=== PATIENT | male | born 1955 | race Caucasian/White ===

== ENCOUNTER 2023-08-30 15:14 | Outpatient (CLI) | payer MEDICARE, MEDICAID, SELFPAY ==
[2023-08-30 16:02] LABS: Basophils Absolute Auto 0.08 K/mm3 (0.00-0.10); Basophils Percent Auto 0.9 % (0.0-1.0); Eosinophils Absolute Auto 0.39 K/mm3 (0.02-0.50); Eosinophils Percent Auto 4.2 % (1.0-6.0); Hematocrit 46.2 % (37.0-46.0); Immature Granulocyte Absolute 0.03 K/mm3 (0.00-0.00); Immature Granulocyte Percent A 0.3 % (0.0-0.0); Lymphocytes Absolute Auto 2.67 K/mm3 (1.10-4.50); Lymphocytes Percent Auto 29.1 % (18.0-42.0); Mean Corpuscular HGB Conc 32.5 g/dL (32.0-36.0); Mean Corpuscular Hemoglobin 31.8 pg (27.0-31.0); Mean Corpuscular Volume 97.9 fL (78.0-102.0); Mean Platelet Volume 9.6 fl (8.7-11.0); Monocytes Absolute Auto 0.74 K/mm3 (0.10-0.90); Monocytes Percent Auto 8.1 % (2.0-11.0); Neutrophils Absolute Auto 5.3 K/mm3 (1.7-7.2); Neutrophils Percent Auto 57.4 % (50.0-70.0); Platelet Count Result 389 K/mm3 (150-420); Red Blood Count 4.72 M/mm3 (4.70-6.10); Red Cell Distribution Width 14.8 % (11.6-14.4); White Blood Count 9.2 K/mm3 (4.8-10.8)
[2023-08-30 16:36] LABS: Alanine Aminotransferase 25 U/L (16-63); Albumin Level 3.7 g/dL (3.4-5.0); Alkaline Phosphatase 105 U/L (46-116); Anion Gap 7 mmol/L (8-16); Aspartate Amino Transferase 21 U/L (15-37); Bilirubin,Total 0.5 mg/dL (0.00-1.00); Blood Urea Nitrogen 16 mg/dL (7-18); Calcium 9.5 mg/dL (8.5-10.1); Carbon Dioxide 31 mmol/L (21-32); Chloride 102 mmol/L (98-108); Estimated Glomerular Filt Rate > 60; Glucose 86 mg/dL (70-99); Osmolality Calculated 290 mOsm/kg (285-295); Sodium 140 mmol/L (136-145); Total Protein 6.5 g/dL (6.4-8.2)
== END 2023-08-30 15:15 | disposition home or self-care (01) ==
LOC: CHSLAB 15:29
PROVIDERS: Visit Provider Internal Medicine Hematology
DX: C34.92 Malignant neoplasm of unspecified part of left bronchus or lung (principal); R53.83 Other fatigue
CPT/HCPCS: 36415; 80053; 84443; 85025

== ENCOUNTER 2023-10-05 09:35 | Outpatient (CLI) | payer MEDICARE, MEDICAID, SELFPAY ==
[2023-10-05 10:04] VITALS: BP 109/63; PULSE 88; RESP 14; TEMP 36.5; O2SAT 96; BMI 24.5
[2023-10-05] MEDS: PEMBROLIZUMAB 200 MG in SODIUM CHLORIDE 0.9% IV 100 ML IVPB (10:28)
[2023-10-05 11:07] VITALS: BP 117/69; PULSE 92; RESP 14; TEMP 36.4; O2SAT 96
[2023-10-05] MEDS: HEPARIN SODIUM LOCK FLUSH 500 UNITS/5 ML SYRINGE (11:07)
--- NOTE | 2023-10-05 11:08 | PC.NURSE ---
Patient here for #1 Keytruda infusion. Education given. All concerns answered. Labs from [facility] reviewed and ok'd for chemo today. Infusion administered. SEE MAR. Tolerated well. Will return 10/26/23 at 0930 for #2 infusion. Will get labs in [place] on 10/25/23. Safe exit of hospital with brother/ambulatory.
== END 2023-10-05 09:36 | disposition home or self-care (01) ==
PROVIDERS: Visit Provider Internal Medicine Hematology
DX: Z51.11 Encounter for antineoplastic chemotherapy (principal); C34.12 Malignant neoplasm of upper lobe, left bronchus or lung
CPT/HCPCS: 96413; J9271

== ENCOUNTER 2023-10-26 09:23 | Outpatient (CLI) | payer MEDICARE, MEDICAID, SELFPAY ==
[2023-10-26 09:44] VITALS: BMI 24.9
[2023-10-26 09:46] VITALS: BP 134/73; PULSE 72; RESP 14; TEMP 36.6; O2SAT 98
[2023-10-26] MEDS: PEMBROLIZUMAB 200 MG in SODIUM CHLORIDE 0.9% IV 100 ML IVPB (10:00)
[2023-10-26] MEDS: HEPARIN SODIUM LOCK FLUSH 500 UNITS/5 ML SYRINGE IV PUSH (10:40)
[2023-10-26 11:14] VITALS: BP 127/80; PULSE 72; RESP 14; TEMP 36.5; O2SAT 97
--- NOTE | 2023-10-26 11:17 | PC.NURSE ---
Patient here for cycle 2 Keytruda. Education given. All concerns voiced answered. Labs reviewed from 11/04/23 and ok'd. Infusion administered. SEE MAR. Tolerated well. Safe exit of hospital with friend/ambulatory. Will return 11/17/23 at 0930 for cycle 3.
== END 2023-10-26 09:24 | disposition home or self-care (01) ==
PROVIDERS: Visit Provider Internal Medicine Hematology
DX: Z51.11 Encounter for antineoplastic chemotherapy (principal); C34.12 Malignant neoplasm of upper lobe, left bronchus or lung
CPT/HCPCS: 96413; J9271

== ENCOUNTER 2023-11-16 09:07 | Outpatient (CLI) | payer MEDICARE, MEDICAID, SELFPAY ==
--- NOTE | ~2023-11-16 | XR_ITS ---
Clinical Indication: Cough PA and lateral views of the chest: Comparison: None Findings: Right-sided central venous line in place. There is patchy haziness throughout the left lung , and minimally the right midlung. Calcified right basilar granuloma present. 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 Cardiomediastinal silhouette is within normal limits. T11 compression fracture present. Impression: Mild patchy haziness in the left lung and right midlung. Pneumonia suspected. Probable underlying COPD. Mediport in place. T11 compression fracture. Reviewed, dictated and finalized at location M. MAIL TECHNICIAN Impression: Mild patchy haziness in the left lung and right midlung. Pneumonia suspected. Probable underlying COPD. Mediport in place. T11 compression fracture.
[2023-11-16 09:47] VITALS: BP 110/62; PULSE 102; RESP 18; TEMP 36.6; O2SAT 84; BMI 24.9
[2023-11-16 10:06] VITALS: O2SAT 92
--- NOTE | 2023-11-16 10:06 | PC.NURSE ---
Patient here for cycle 3 of Keytruda today. However, reports feeling under the weather. Coughing up green yellow phlegm . Denies fever. Current afebrile. Denies no shortness then breath then usual. Lungs with diminished with some scattered wheezes. O2 sat 84-88% at first. Took his albuterol inhaler- cough up secretions and sats staying in low 90's. Labs reviewed from 11/14/23 (done in [place]) WBC 11, but otherwise unremarkable. Notified Dr. Chen of above. Hold treatment this week. Chest xray and covid test ordered. Patient went to xray and then going to lab. Patient told that Dr. Chen office will call him at home if they need to do or start anything else.
[2023-11-16 10:59] LABS: SARS-CoV-2 RNA PCR Negative (Negative)
[2023-11-16 11:02] LABS: Influenza A QL RT-PCR Negative (Negative); Influenza B QL RT-PCR Negative (Negative); RSV RNA, RT-PCR Negative (Negative)
== END 2023-11-16 09:08 | disposition home or self-care (01) ==
LOC: CHSTREATRM 09:12
PROVIDERS: Visit Provider Internal Medicine Hematology
DX: C34.12 Malignant neoplasm of upper lobe, left bronchus or lung (principal); R05.9 Cough, unspecified; R91.8 Other nonspecific abnormal finding of lung field; Z20.822 Contact with and (suspected) exposure to COVID-19
CPT/HCPCS: 71046; 87637

== ENCOUNTER 2023-11-30 09:07 | Outpatient (CLI) | payer MEDICARE, MEDICAID, SELFPAY ==
[2023-11-30 09:31] VITALS: BP 119/67; PULSE 92; RESP 16; TEMP 36.5; O2SAT 93; BMI 24.3
[2023-11-30] MEDS: PEMBROLIZUMAB 200 MG in SODIUM CHLORIDE 0.9% IV 100 ML IVPB (09:40)
[2023-11-30 10:20] VITALS: BP 114/69; PULSE 88; RESP 14; TEMP 36.4; O2SAT 94
[2023-11-30] MEDS: HEPARIN SODIUM LOCK FLUSH 500 UNITS/5 ML SYRINGE IV PUSH (10:29)
--- NOTE | 2023-11-30 10:34 | PC.NURSE ---
Patient here for #3 cycle of Keytruda tx. Ongoing teaching given. No concerns voiced. Infusion administered. SEE MAR. Tolerated well. Safe exit of hospital with friend/ambulatory. Will return 12/21/23 at 0930 for #4 tx.
--- NOTE | 2023-11-30 10:37 | PC.NURSE ---
Labs done at [facility] on . reviewed and ok'd prior to infusion.
== END 2023-11-30 10:37 | disposition home or self-care (01) ==
LOC: CHSTREATRM 09:11
PROVIDERS: PCP Internal Medicine Hematology; Visit Provider Internal Medicine Hematology
DX: Z51.11 Encounter for antineoplastic chemotherapy (principal); C34.12 Malignant neoplasm of upper lobe, left bronchus or lung
CPT/HCPCS: 96413; J9271

== ENCOUNTER 2023-12-21 08:59 | Outpatient (CLI) | payer MEDICARE, MEDICAID, SELFPAY ==
[2023-12-21 09:17] VITALS: BP 117/69; PULSE 98; RESP 16; TEMP 36.6; O2SAT 92; BMI 22.6
[2023-12-21] MEDS: PEMBROLIZUMAB 200 MG in SODIUM CHLORIDE 0.9% IV 100 ML IVPB (09:35)
[2023-12-21 10:01] VITALS: BP 121/70; PULSE 92; RESP 14; O2SAT 94
[2023-12-21] MEDS: HEPARIN SODIUM LOCK FLUSH 500 UNITS/5 ML SYRINGE IV PUSH (10:04)
--- NOTE | 2023-12-21 10:12 | PC.NURSE ---
Patient here for Keytruda chemo infusion. Labs reviewed from 12/20/23 and ok'd. Education given. No concerns voiced. Keytruda infusion administered. SEE MAR. Tolerated well. Will return 01/11/24 0900 for #5. Safe exit of hospital with brother/ambulatory.
== END 2023-12-21 09:00 | disposition home or self-care (01) ==
PROVIDERS: Visit Provider Internal Medicine Hematology
DX: Z51.11 Encounter for antineoplastic chemotherapy (principal); C34.12 Malignant neoplasm of upper lobe, left bronchus or lung
CPT/HCPCS: 96413; J9271

== ENCOUNTER 2024-01-11 09:02 | Outpatient (CLI) | payer MEDICARE, MEDICAID, SELFPAY ==
[2024-01-11 09:24] VITALS: BP 119/73; PULSE 72; RESP 16; TEMP 36.1; O2SAT 92; BMI 23.9
[2024-01-11] MEDS: PEMBROLIZUMAB 200 MG in SODIUM CHLORIDE 0.9% IV 100 ML IVPB (09:30)
[2024-01-11] MEDS: HEPARIN SODIUM LOCK FLUSH 500 UNITS/5 ML SYRINGE IV PUSH (10:04)
[2024-01-11 10:11] VITALS: BP 120/77; PULSE 80; RESP 14; O2SAT 93
--- NOTE | 2024-01-11 10:12 | PC.NURSE ---
Patient here for Keytruda infusion. No concerns voiced. Education given. IV infusion administered. SEE MAR. Tolerated well. Will return 01/31/34 at 9 a.m. for next treatment. Safe exit of hospital per with brother/ambulatory.
== END 2024-01-11 09:03 | disposition home or self-care (01) ==
PROVIDERS: Visit Provider Internal Medicine Hematology
DX: Z51.11 Encounter for antineoplastic chemotherapy (principal); C34.12 Malignant neoplasm of upper lobe, left bronchus or lung
CPT/HCPCS: 96413; J9271

== ENCOUNTER 2024-02-01 09:01 | Outpatient (CLI) | payer MEDICARE, MEDICAID, SELFPAY ==
[2024-02-01 09:17] VITALS: BP 103/65; PULSE 76; RESP 16; TEMP 36.7; O2SAT 96; BMI 23.3
[2024-02-01] MEDS: PEMBROLIZUMAB 200 MG in SODIUM CHLORIDE 0.9% IV 100 ML IVPB (09:30)
[2024-02-01] MEDS: HEPARIN SODIUM LOCK FLUSH 500 UNITS/5 ML SYRINGE IV PUSH (10:00)
[2024-02-01 10:33] VITALS: BP 110/69; PULSE 88; RESP 14; O2SAT 96
--- NOTE | 2024-02-01 10:37 | PC.NURSE ---
Patient here for Keytruda tx infusion. Education given. No concerns voiced. Labs results from [facility] gotten/reviewed/ok'd. Tx infusion administered. SEE MAR. Tolerated well. Safe exit of hospital per self/ambulatory. Will return February 22, 2024 at 9 am.
== END 2024-02-01 09:02 | disposition home or self-care (01) ==
PROVIDERS: PCP Internal Medicine Hematology; Visit Provider Internal Medicine Hematology
DX: Z51.11 Encounter for antineoplastic chemotherapy (principal); C34.12 Malignant neoplasm of upper lobe, left bronchus or lung
CPT/HCPCS: 96413; J9271

== ENCOUNTER 2024-02-22 09:00 | Outpatient (CLI) | payer MEDICARE, MEDICAID, SELFPAY ==
[2024-02-22 09:15] VITALS: BP 113/70; PULSE 88; RESP 16; TEMP 36.6; O2SAT 95; BMI 23.6
[2024-02-22] MEDS: PEMBROLIZUMAB 200 MG in SODIUM CHLORIDE 0.9% IV 100 ML IVPB (09:35)
[2024-02-22] MEDS: HEPARIN SODIUM LOCK FLUSH 500 UNITS/5 ML SYRINGE IV PUSH (10:20)
[2024-02-22 10:21] VITALS: BP 125/68; PULSE 68; RESP 14; O2SAT 95
--- NOTE | 2024-02-22 10:24 | PC.NURSE ---
Patient here for Keytruda infusion. Labs done at [facility]- reviewed/ok'd Cortisol pending, but Dr. Chen approved to proceed. Education given. No concerns voiced. Keytruda administered. SEE MAR. Tolerated well. Will call patient to schedule next treatment after talking to Dr. Chen. Safe exit of hospital per self/ambulation.
== END 2024-02-22 09:01 | disposition home or self-care (01) ==
PROVIDERS: PCP Internal Medicine Hematology; Visit Provider Internal Medicine Hematology
DX: Z51.11 Encounter for antineoplastic chemotherapy (principal); C34.12 Malignant neoplasm of upper lobe, left bronchus or lung
CPT/HCPCS: 96413; J9271

== ENCOUNTER 2024-03-21 09:12 | Outpatient (CLI) | payer MEDICARE, MEDICAID, SELFPAY ==
[2024-03-21 09:20] VITALS: BMI 23.3
[2024-03-21] MEDS: PEMBROLIZUMAB 200 MG in SODIUM CHLORIDE 0.9% IV 100 ML IVPB (09:20)
[2024-03-21 09:33] VITALS: BP 118/71; PULSE 78; RESP 14; TEMP 36.6; O2SAT 96
[2024-03-21 10:26] VITALS: BP 121/70; PULSE 72; RESP 14; TEMP 36.4; O2SAT 96
[2024-03-21] MEDS: HEPARIN SODIUM LOCK FLUSH 500 UNITS/5 ML SYRINGE IV PUSH (10:27)
--- NOTE | 2024-03-21 10:56 | PC.NURSE ---
Patient tolerated IV Keytruda treatment well today. Refer to MAR/patient care notes.[facility]
== END 2024-03-21 09:13 | disposition home or self-care (01) ==
PROVIDERS: Visit Provider Internal Medicine Hematology
DX: Z51.11 Encounter for antineoplastic chemotherapy (principal); C34.12 Malignant neoplasm of upper lobe, left bronchus or lung
CPT/HCPCS: 96413; J9271

== ENCOUNTER 2024-04-11 08:59 | Outpatient (CLI) | payer MEDICARE, MEDICAID, SELFPAY ==
[2024-04-11] MEDS: PEMBROLIZUMAB 200 MG in SODIUM CHLORIDE 0.9% IV 100 ML IVPB (09:15)
[2024-04-11 09:20] VITALS: BP 121/70; PULSE 78; RESP 14; TEMP 36.6; O2SAT 96; BMI 23.3
[2024-04-11] MEDS: HEPARIN SODIUM LOCK FLUSH 500 UNITS/5 ML SYRINGE IV PUSH (09:55)
[2024-04-11 10:03] VITALS: BP 118/71; PULSE 72; RESP 14
--- NOTE | 2024-04-11 10:12 | PC.NURSE ---
Patient tolerated Keytruda infusion well. see MAR/patient care notes.
== END 2024-04-11 09:00 | disposition home or self-care (01) ==
PROVIDERS: Visit Provider Internal Medicine Hematology
DX: Z51.11 Encounter for antineoplastic chemotherapy (principal); C34.12 Malignant neoplasm of upper lobe, left bronchus or lung
CPT/HCPCS: 96413; J9271

== ENCOUNTER 2024-04-15 08:07 | Outpatient (CLI) | payer MEDICARE, MEDICAID, SELFPAY ==
--- NOTE | ~2024-04-15 | CT_ITS ---
Clinical Indication: Metastatic lung cancer CT Scan of the Chest, Abdomen, and Pelvis with Contrast: Technique: Contiguous sections were acquired throughout the chest, abdomen, and pelvis after intraven ous administration of 100 cc of Omnipaque 350. Dose reduction technique was used on this scan by maximiliano medeiros automated exposure control and iterative reconstruction technique. The dose-length product (DL P) was 419.65 mGy-cm. Findings: There is no evidence of any significant mediastinal, hilar or axillary lymphadenopathy. The mediastin al soft tissues appear normal. There is no evidence of pleural or pericardial effusion. There is advanced emphysema. There is scarring, possibly posttreatment change, the posterior right up per lobe. Additional scattered areas of pulmonary scarring are present. No overtly suspicious pulmona ry nodule seen currently. Calcified right basilar granuloma present. The liver, spleen, pancreas, gallbladder, adrenals and kidneys are within normal limits. There are at herosclerotic calcifications of the aorta. No lymphadenopathy. No bowel obstruction or bowel wall thickening. There is no evidence to suggest acute appendicitis. Urinary bladder is unremarkable. Urinary bladder unremarkable. No pelvic mass evident. No ascites. T11 compression fracture present, likely chronic. Impression: No definite evidence of active malignancy or metastatic disease. Scarring or possibly post treatment change the posterior right upper lobe. Underlying severe emphysem a. Reviewed, dictated and finalized at location . Impression: No definite evidence of active malignancy or metastatic disease. Scarring or possibly post treatment change the posterior right upper lobe. Unde rlying severe emphysema.
[2024-04-15 09:29] LABS: Estimated Glomerular Filt Rate > 60
== END 2024-04-15 08:08 | disposition home or self-care (01) ==
LOC: CHSIMG 08:10
PROVIDERS: Visit Provider Internal Medicine Hematology
DX: C34.90 Malignant neoplasm of unspecified part of unspecified bronchus or lung (principal); R91.8 Other nonspecific abnormal finding of lung field
CPT/HCPCS: 71260; 74177; Q9967

== ENCOUNTER 2024-05-02 09:01 | Outpatient (CLI) | payer MEDICARE, MEDICAID, SELFPAY ==
[2024-05-02 09:18] VITALS: BP 130/70; PULSE 88; RESP 14; TEMP 36.4; O2SAT 97; BMI 23.3
[2024-05-02] MEDS: PEMBROLIZUMAB 200 MG in SODIUM CHLORIDE 0.9% IV 100 ML IVPB (09:27)
[2024-05-02] MEDS: HEPARIN SODIUM LOCK FLUSH 500 UNITS/5 ML SYRINGE IV PUSH (10:04)
[2024-05-02 10:06] VITALS: BP 129/68; PULSE 68; RESP 14; O2SAT 97
--- NOTE | 2024-05-02 10:08 | PC.NURSE ---
Patient tolerated Keytruda infusion well. SEE MAR/patient notes.
== END 2024-05-02 09:02 | disposition home or self-care (01) ==
PROVIDERS: Visit Provider Internal Medicine Hematology
DX: Z51.11 Encounter for antineoplastic chemotherapy (principal); C34.12 Malignant neoplasm of upper lobe, left bronchus or lung
CPT/HCPCS: 96413; J9271

== ENCOUNTER 2024-05-23 08:42 | Outpatient (CLI) | payer MEDICARE, MEDICAID, SELFPAY ==
[2024-05-23 08:52] VITALS: BMI 23.3
[2024-05-23 09:00] VITALS: BP 135/73; PULSE 80; RESP 16; TEMP 36.3; O2SAT 97
[2024-05-23] MEDS: PEMBROLIZUMAB 200 MG in SODIUM CHLORIDE 0.9% IV 100 ML IVPB (09:21)
[2024-05-23 09:55] VITALS: BP 130/72; PULSE 78; RESP 14; O2SAT 98
[2024-05-23] MEDS: HEPARIN SODIUM LOCK FLUSH 500 UNITS/5 ML SYRINGE (09:55)
--- NOTE | 2024-05-23 10:12 | PC.NURSE ---
Patient here for #10 Keytruda infusions. Education given. Keytruda infusion administered. SEE MAR/patient care notes. Tolerated well.
== END 2024-05-23 08:43 | disposition home or self-care (01) ==
PROVIDERS: Visit Provider Internal Medicine Hematology
DX: Z51.11 Encounter for antineoplastic chemotherapy (principal); C34.12 Malignant neoplasm of upper lobe, left bronchus or lung
CPT/HCPCS: 96413; J9271

== ENCOUNTER 2024-06-13 08:59 | Outpatient (CLI) | payer MEDICARE, MEDICAID, SELFPAY ==
[2024-06-13 09:17] VITALS: BMI 23.3
[2024-06-13 09:20] VITALS: BP 128/76; PULSE 76; RESP 16; TEMP 36.4; O2SAT 99
[2024-06-13] MEDS: PEMBROLIZUMAB 200 MG in SODIUM CHLORIDE 0.9% IV 100 ML IVPB (09:30)
[2024-06-13] MEDS: HEPARIN SODIUM LOCK FLUSH 500 UNITS/5 ML SYRINGE IV PUSH (10:14)
[2024-06-13 10:25] VITALS: BP 129/77; PULSE 88; RESP 16; O2SAT 98
--- NOTE | 2024-06-13 10:38 | PC.NURSE ---
Patient tolerated Keytruda infusion well. SEE MAR/patient care notes.
== END 2024-06-13 10:40 | disposition home or self-care (01) ==
PROVIDERS: Visit Provider Internal Medicine Hematology
DX: Z51.11 Encounter for antineoplastic chemotherapy (principal); C34.12 Malignant neoplasm of upper lobe, left bronchus or lung
CPT/HCPCS: 96413; J9271

== ENCOUNTER 2024-07-04 08:56 | Outpatient (CLI) | payer MEDICARE, MEDICAID, SELFPAY ==
[2024-07-04 09:17] VITALS: BP 127/76; PULSE 92; RESP 16; TEMP 37.1; O2SAT 94
[2024-07-04 09:20] VITALS: BMI 23.0
[2024-07-04] MEDS: PEMBROLIZUMAB 200 MG in SODIUM CHLORIDE 0.9% IV 100 ML IVPB (09:32)
[2024-07-04] MEDS: HEPARIN SODIUM LOCK FLUSH 500 UNITS/5 ML SYRINGE IV PUSH (10:12)
[2024-07-04 10:14] VITALS: BP 117/68; PULSE 80; RESP 14; TEMP 36.4; O2SAT 94
--- NOTE | 2024-07-04 10:16 | PC.NURSE ---
Tolerated Keytruda infusion well. SEE MAR/patient care notes.
== END 2024-07-04 10:18 | disposition home or self-care (01) ==
PROVIDERS: PCP Internal Medicine Hematology; Visit Provider Internal Medicine Hematology
DX: Z51.11 Encounter for antineoplastic chemotherapy (principal); C34.12 Malignant neoplasm of upper lobe, left bronchus or lung
CPT/HCPCS: 96413; J9271

== ENCOUNTER 2024-07-25 08:50 | Outpatient (CLI) | payer MEDICARE, MEDICAID, SELFPAY ==
[2024-07-25 09:16] VITALS: BP 167/85; PULSE 88; RESP 20; TEMP 36.2; O2SAT 92; BMI 23.1
[2024-07-25] MEDS: PEMBROLIZUMAB 200 MG in SODIUM CHLORIDE 0.9% IV 100 ML IVPB (09:35)
[2024-07-25 10:30] VITALS: BP 157/82; PULSE 88; RESP 14; O2SAT 96
[2024-07-25] MEDS: HEPARIN SODIUM LOCK FLUSH 500 UNITS/5 ML SYRINGE (10:30)
--- NOTE | 2024-07-25 10:54 | PC.NURSE ---
1030 Patient tolerated treatment infusion well. see MAR/patient care notes.
== END 2024-07-25 08:51 | disposition home or self-care (01) ==
PROVIDERS: PCP Internal Medicine Hematology; Visit Provider Internal Medicine Hematology
DX: Z51.11 Encounter for antineoplastic chemotherapy (principal); C34.12 Malignant neoplasm of upper lobe, left bronchus or lung
CPT/HCPCS: 96413; J9271

== ENCOUNTER 2024-08-15 09:11 | Outpatient (CLI) | payer MEDICARE, MEDICAID, SELFPAY ==
[2024-08-15 09:30] VITALS: BP 123/74; PULSE 84; RESP 16; TEMP 36.4; O2SAT 96; BMI 23.0
[2024-08-15] MEDS: PEMBROLIZUMAB 200 MG in SODIUM CHLORIDE 0.9% IV 100 ML IVPB (09:42)
[2024-08-15] MEDS: HEPARIN SODIUM LOCK FLUSH 500 UNITS/5 ML SYRINGE IV PUSH (10:14)
[2024-08-15 10:23] VITALS: BP 131/70; PULSE 78; RESP 16; O2SAT 96
--- NOTE | 2024-08-15 10:24 | PC.NURSE ---
Patient tolerated #15 Keytruda infusion well. SEE MAR/patient care notes.
== END 2024-08-15 09:12 | disposition home or self-care (01) ==
PROVIDERS: Visit Provider Internal Medicine Hematology
DX: Z51.11 Encounter for antineoplastic chemotherapy (principal); C34.12 Malignant neoplasm of upper lobe, left bronchus or lung
CPT/HCPCS: 96413; J9271

== ENCOUNTER 2024-09-26 09:31 | Outpatient (CLI) | payer MEDICARE, MEDICAID, SELFPAY ==
[2024-09-26] MEDS: SODIUM CHLORIDE 0.9% IV 1,000 ML 1000 ML IVPB (10:00)
[2024-09-26 10:03] LABS: Hematocrit 41.8 % (37.0-46.0); Hemoglobin 13.5 g/dL (12.4-15.3); Immature Platelet Fraction Pct 1.2 % (1.0-7.0); Mean Corpuscular HGB Conc 32.3 g/dL (32-36); Mean Corpuscular Hemoglobin 30.9 pg (27.0-31.0); Mean Corpuscular Volume 95.7 fL (78.0-102.0); Platelet Count Result 702 K/mm3 (150-420); Red Blood Count 4.37 M/mm3 (4.70-6.10); Red Cell Distribution Width 15.7 % (11.6-14.4)
[2024-09-26 10:14] LABS: White Blood Count 23.2 K/mm3 (4.8-10.8)
[2024-09-26 10:16] VITALS: BP 123/68; PULSE 92; RESP 16; TEMP 36.4; O2SAT 93; BMI 20.8
[2024-09-26 10:27] LABS: Band Neutrophils Percent 1 % (0-6); Eosinophils Absolute Manual 0.23 K/mm3 (0.02-0.50); Eosinophils Percent Manual 1 % (1-6); Lymphocytes Absolute Manual 0.92 K/mm3 (1.1-4.5); Lymphocytes Percent Manual 4 % (18-44); Monocytes Absolute Manual 0.46 K/mm3 (0.1-0.90); Monocytes Percent Manual 2 % (3-9); Neutrophils Absolute Manual 21.57 K/mm3 (1.3-6.7); Neutrophils Percent Manual 92 % (46-73); Platelet Estimate Increased (Adequate); Total Cells Counted 100
[2024-09-26 10:33] LABS: Alanine Aminotransferase 38 U/L (16-63); Albumin Level 2.9 g/dL (3.4-5.0); Alkaline Phosphatase 128 U/L (46-116); Anion Gap 8 mmol/L (4-12); Aspartate Amino Transferase 18 U/L (15-37); Bilirubin,Total 0.3 mg/dL (0.00-1.00); Blood Urea Nitrogen 22 mg/dL (7-18); CRP 5.4 mg/dL (0.0-0.9); Calcium 9.4 mg/dL (8.5-10.1); Carbon Dioxide 33 mmol/L (21-32); Chloride 101 mmol/L (98-108); Estimated CRCL calculation 66 ml/min; Estimated Glomerular Filt Rate > 60; Glucose 96 mg/dL (70-99); Osmolality Calculated 297 mOsm/kg (285-295); Potassium 4.6 mmol/L (3.5-5.1); Sodium 142 mmol/L (136-145); Total Protein 6.6 g/dL (6.4-8.2)
[2024-09-26] MEDS: HEPARIN SODIUM LOCK FLUSH 500 UNITS/5 ML SYRINGE IV PUSH (11:18)
--- NOTE | 2024-09-26 11:21 | PC.NURSE ---
Patient here for 1 liter normal saline. Education given. No concerns voiced. Tolerated infusion well. SEE MAR/patient care notes.
== END 2024-09-26 09:32 | disposition home or self-care (01) ==
PROVIDERS: Visit Provider Internal Medicine Hematology
DX: C34.12 Malignant neoplasm of upper lobe, left bronchus or lung (principal)
CPT/HCPCS: 36415; 80053; 85025; 85055; 86140; 87040; 96360; J7030